=== PATIENT | male | born 1965 | race Caucasian/White ===

== ENCOUNTER 2021-05-13 07:36 | Emergency (ER) | payer OTHER ==
[2021-05-13 07:50] VITALS: BP 168/108
[2021-05-13] MEDS ORDERED: oxyCODONE 5 MG TABLET PO STA (08:59)
--- NOTE | 2021-05-13 09:59 | XRAY Report ---
PROCEDURE: Knee 2 View RT INDICATIONS: Swelling TECHNIQUE: 2 views of the right knee(s) were acquired. COMPARISON: 08/07/2013 FINDINGS: Bones: No acute fractures or dislocations. There is a remote likely avulsion fracture seen involving the inferior aspect of the medial femoral condyle, which is stable compared to 2013. No suspicious b janna lesions. Soft tissues: There is a small joint effusion. No suspicious soft tissue calcifications. Atheroscle rotic calcification is seen. IMPRESSION: Small joint effusion. No acute bony abnormality is seen. If there is strong clinical concern for internal derangement of the knee, please consider a dedicated , scheduled knee MRI for further evaluation (assuming that there is no contraindication). Reviewed by: Jason Jameson MD on 05/13/2021 7:48 AM LANEDN Approved by: Jason Jameson MD on 05/13/2021 7:48 AM LANDEN Station ID: [id number]
[2021-05-13] MEDS ORDERED: TRIAMCINOLONE 40 MG/ML VIAL IM STA (10:32)
--- NOTE | 2021-05-13 11:25 | ED Physician Documentation ---
History of Present Illness - Stated complaint Stated Complaint: RT KNEE SWELLING - Chief complaint Chief Complaint: Ext Problem - History obtained from History obtained from: Patient - Additonal information Additional information: 55-year-old man with past medical history of gout status post steroid treatment for right knee pain, also with history of osteoarthritis and chronic insufficiency fracture presents with right knee pain that is persistent over the past week, progressively worsening, worse with bending the knee and pressing on the kneecap. He denies trauma, erythema, fevers. Does have mild swelling to the knee. Review of Systems Constitutional: denies: Fever, Chills Skin: denies: Rash, Lesions Musculoskeletal: reports: Extremity pain, Joint pain Neurologic: denies: Focal weakness, Numbness PD PAST MEDICAL HISTORY - Past Medical History Endocrine/Autoimmune: Type 2 diabetes, HyPOthyroidism Musculoskeletal: Gout - Past Surgical History Past Surgical History: Yes - Present Medications Home Medications: Ambulatory Orders Medication Instructions Recorded Confirmed Levothyroxine Sodium [Synthroid] 50 mcg PO DAILY 08/07/13 07/21/14 ALPRAZolam [Xanax] 0.5 mg PO DAILY 07/21/14 07/21/14 Atorvastatin Calcium [Lipitor] 20 mg PO DAILY 07/21/14 07/21/14 Metformin HCl [Metformin ER 500 mg PO DAILY 07/21/14 07/21/14 Osmotic] allopurinoL [Allopurinol] 100 mg PO DAILY 07/21/14 07/21/14 Metoclopramide [Reglan] 10 mg PO ACHS #20 tablet 07/22/14 - Allergies Allergies/Adverse Reactions: Allergies Allergy/AdvReac Type Severity Reaction Status Date / Time No Known Drug Allergies Allergy Verified 05/13/21 07:49 - Social History Does the pt smoke?: Yes Smoking Status: Current every day smoker Does the pt drink ETOH?: No Does the pt have substance abuse?: No PD ED PE NORMAL - Vitals Vital signs reviewed: Yes - General General: Alert and oriented X 3, No acute distress, Well developed/nourished - HEENT HEENT: Atraumatic, PERRL, EOMI - Derm Derm: Normal color, Warm and dry - Extremities Extremities: Other (Mild swelling palpable to right knee. Tender with range of motion of the knee. Patella tender to palpation. No cellulitis or erythema or warmth. 2+ dp/pt pulses, sensation, cap refill) - Neuro Neuro: Alert and oriented X 3, No motor deficit, No sensory deficit - Psych Psych: Normal mood, Normal affect Results - Vitals Vitals: Vital Signs - 24 hr 05/13/21 07:47 Temperature 36.9 C Heart Rate 64 Respiratory 16 Rate Blood Pressure 168/108 H O2 Saturation 99 Oxygen O2 Source Room air Procedures - Arthrocentesis Joint: Knee, Right Preparation: Consent obtained, Sterile prep and drape Anesthesia: Lidocaine 1% Fluid: Clear, Sent for cell count, Sent for crystals, Sent for culture, Sent for gram stain Aftercare: Dressing applied, No complications, Other (1 mL of steroid and 1 mL of 1% lidocaine injected into the knee joint for symptomatic care.), Patient tolerated well PD MEDICAL DECISION MAKING - ED course ED course: 55-year-old man presented with right knee effusion. Arthrocentesis performed without issue and sent to the lab. no cellulitis, calor, and the fluid is clear. Patient will follow up with orthopedics and will review his results on that would be patient health portal. Return precautions given. Impression 1 knee effusion Departure - Departure Disposition: 01 Home, Self Care Condition: Good Instructions: ED Effusion Knee Follow-Up: Nelson Duncan MD [Provider Admit Priv/Credential] - Comments: You are seen in the emergency department for knee effusion (buildup of fluid in the knee joint). A sample was taken from the knee and sent for analysis. You should follow-up with orthopedics to review these results And can also review them on the patient health portal accessible through the [employer] Internet. Try not to move your knee for at least 48 hours and use the knee immobilizer. I injected steroid and numbing medication called lidocaine into the knee joint and that should give you some relief. Return the emergency department if you de velop fevers, redness, worsening pain, or have other concerns.
[2021-05-13 11:51] LABS: BF CLARITY CLEAR
[2021-05-13 11:52] LABS: BF COLOR COLORLESS; BF SOURCE KNEE
[2021-05-13 11:57] LABS: CC,BF WBC 67 /mm^3
[2021-05-13 11:58] LABS: CC,BF RBC < 3000 /mm^3
[2021-05-13 13:32] LABS: NEUTROPHILS %, BF 48 %
[2021-05-13 13:33] LABS: LYMPHOCYTES %,BODY FLUID 40 %; MESOTHELIAL %, BF 12 %
== END 2021-05-13 11:40 | disposition home or self-care (01) ==
LOC: ED 07:36
DX: M25.461 Effusion, right knee (principal); F17.200 Nicotine dependence, unspecified, uncomplicated
CPT/HCPCS: 20610; 73560; 87070; 87205; 89051; 89060; 96372; 99284; A9270

== ENCOUNTER 2023-04-03 14:36 | Emergency (ER) | payer OTHER ==
[2023-04-03] MEDS ORDERED: ONDANSETRON 4 MG/2 ML VIAL IVP STA (14:55)
[2023-04-03] MEDS ORDERED: SODIUM CHLORIDE 0.9% 1,000 ML IV STA (14:55)
[2023-04-03] MEDS ORDERED: iohexoL-300 100 ML VIAL ONE (15:03)
--- NOTE | 2023-04-03 15:03 | ED Physician Documentation ---
History of Present Illness - Stated complaint Stated Complaint: OVERLY TIRED/SENT BY PCP - Chief complaint Chief Complaint: General - History obtained from History obtained from: Patient - Additonal information Additional information: 57-year-old male with a history of type 2 diabetes, recently started on Ozempic a couple of months ago, presents at the request of his PCP clinic for nausea, vomiting, diarrhea, as well as a reported elevated white blood cell count. The patient had routine labs done today in preparation for an appointment next week on Thursday and he was apparently told to come emergently to the ER for an elevated white blood cell count. Patient states he is only here because he was told to be here but does note that over the last month or so he has had issues with bloating, nausea, vomiting and diarrhea since he started the Ozempic. He looked at the potential side effects and since these were listed he thought it was likely related to the medication and did not seek care for this and states that it typically would go away for couple of days after he would receive his injection though this past week it lasted nearly a week since his last injection and he Chose not to take it any longer due to ongoing side effects. He does feel somewhat better today than he has been feeling, he was able to go out to breakfast this morning and then also ate lunch today and has kept that down without vomiting. He is down about 17 to 20 pounds over the course of the last 2 months since he started Ozempic. He states when the pain comes is typically like severe gas pain, radiating throughout the abdomen but most prominently in the mid and left upper quadrants. It feels as though he needs to burp or pass gas but he cannot. He states he does have this frequently even prior to the Ozempic as he is on BiPAP and he often feels bloated in the morning but that would improve throughout the day though recently it has been more persistent. He has tried Gas-X without relief. He has associated fatigue but he denies any fever, no cough or URI symptoms, no chest pain or difficulty breathing, no dysuria urgency or frequency. No antibiotic use in the last 3 months, no hospitalizations or international travel. No atypical foods or water sources. Review of lab work from the [facility] reveals a white blood cell count of 21.6, hemoglobin of 16.4, hematocrit of 47.6, glucose of 124, BUN of 19, creatinine of 1.16, sodium 136, normal potassium and calcium, AST of 54, bilirubin of 0.5, ALT of 44, A1c of 7.5, TSH of 5.8, free T4 of 0.7 Review of Systems Constitutional: reports: Fatigue, Weight Loss. denies: Fever, Chills, Myalgias, Sweats Eyes: reports: Reviewed and negative Ears: reports: Reviewed and negative Nose: reports: Reviewed and negative Throat: reports: Reviewed and negative Cardiac: reports: Reviewed and negative Respiratory: reports: Reviewed and negative GI: reports: Abdominal Pain, Abdominal Swelling, Nausea, Vomiting, Diarrhea. denies: Constipation, Hematemesis, Bloody / black stool : reports: Reviewed and negative Skin: reports: Reviewed and negative Musculoskeletal: reports: Reviewed and negative Neurologic: reports: Reviewed and negative Endocrine: reports: Weight loss (intentional, on ozempic) PD PAST MEDICAL HISTORY - Past Medical History Past Medical History: Yes Endocrine/Autoimmune: Type 2 diabetes, HyPOthyroidism Musculoskeletal: Gout - Past Surgical History Past Surgical History: Yes - Present Medications Home Medications: Ambulatory Orders Medication Instructions Recorded Confirmed Levothyroxine Sodium [Synthroid] 50 mcg PO DAILY 08/07/13 07/21/14 ALPRAZolam [Xanax] 0.5 mg PO DAILY 07/21/14 07/21/14 Atorvastatin Calcium [Lipitor] 20 mg PO DAILY 07/21/14 07/21/14 Metformin HCl [Metformin ER 500 mg PO DAILY 07/21/14 07/21/14 Osmotic] allopurinoL [Allopurinol] 100 mg PO DAILY 07/21/14 07/21/14 Metoclopramide [Reglan] 10 mg PO ACHS #20 tablet 07/22/14 Ondansetron Odt [Zofran] 4 mg TL Q6H PRN #10 tablet 04/03/23 - Allergies Allergies/Adverse Reactions: Allergies Allergy/AdvReac Type Severity Reaction Status Date / Time No Known Drug Allergies Allergy Verified 04/03/23 14:42 - Social History Does the pt smoke?: Yes Smoking Status: Current every day smoker Does the pt drink ETOH?: No Does the pt have substance abuse?: No PD ED PE NORMAL - Vitals Vital signs reviewed: Yes - General General: Alert and oriented X 3, No acute distress, Well developed/nourished - HEENT HEENT: Atraumatic, Pharynx benign - Neck Neck: Supple, no meningeal sign, No JVD - Cardiac Cardiac: RRR, No murmur - Respiratory Respiratory: No respiratory distress, Clear bilaterally - Abdomen Abdomen: Normal bowel sounds, Soft, Non tender, Non distended, No organomegaly, Other (No reproducible tenderness on physical exam at present) - Back Back: No CVA TTP, No spinal TTP - Derm Derm: Normal color, Warm and dry, No rash - Extremities Extremities: No deformity, No tenderness to palpate, Normal ROM s pain, No edema, No calf tenderness / cord - Neuro Neuro: Alert and oriented X 3 Eye Opening: Spontaneous Motor: Obeys Commands Verbal: Oriented GCS Score: 15 - Psych Psych: Normal mood, Normal affect Results - Vitals Vitals: Vital Signs - 24 hr 04/03/23 14:39 Temperature 36.7 C Heart Rate 77 Respiratory 20 Rate Blood Pressure 135/103 H O2 Saturation 99 Oxygen O2 Source Room air - Labs Labs: Laboratory Tests 04/03/23 04/03/23 04/03/23 15:02 15:02 15:56 WBC 25.6 H RBC 5.30 Hgb 16.1 Hct 45.4 MCV 85.7 MCH 30.4 MCHC 35.5 RDW 13.0 Plt Count 273 MPV 11.0 Sodium 138 Potassium 3.5 Chloride 105 Carbon Dioxide 21 Anion Gap 12.0 BUN 20 Creatinine 1.1 Estimated GFR (MDRD) 69 L Glucose 122 H Calcium 9.4 Total Bilirubin 0.6 AST 52 H ALT 45 Alkaline Phosphatase 102 Total Protein 8.2 Albumin 4.1 Globulin 4.1 Albumin/Globulin Ratio 1.0 Lipase 41 Urine Color YELLOW Urine Clarity HAZY Urine pH 5.5 Ur Specific Ash 1.025 Urine Protein NEGATIVE Urine Glucose (UA) NEGATIVE Urine Ketones NEGATIVE Urine Occult Blood NEGATIVE Urine Nitrite NEGATIVE Urine Bilirubin NEGATIVE Urine Urobilinogen 0.2 (NORMAL) Ur Leukocyte Esterase NEGATIVE Urine RBC None Seen Urine WBC 0-3 Ur Squamous Epith Cells RARE Squamous Urine Crystals >50 Uric Acid Urine Bacteria Rare Ur Microscopic Review INDICATED Urine Culture Comments NOT INDICATED - Rads (name of study) No standard instances Relevant Findings:: Final report received PD Medical Decision Making - ED course Complexity details: reviewed old records, reviewed results, re-evaluated patient, considered differential, d/w patient ED course: 57-year-old male Presented at the request of his PCP after routine labs revealed a white blood cell count greater than 20,000. The patient had been having some nausea vomiting diarrhea the course of the last couple of weeks as per HPI. On arrival here, patient is well-appearing, nontoxic, afebrile. His physical exam is reassuring with no reproducible abdominal pain and no other acute findings. We obtained labs which show a white blood cell count of 25.6 are otherwise stable, his urinalysis is negative. I did obtain a CT of his abdomen given his GI symptoms and elevated white blood cell count over this is reassuring, showing only mild gastroenteritis likely a result of the side effects of Ozempic. Is a patient is very well-appearing with no other acute findings on exam, I do not see indication for antibiotics at this time. Review of his chart does show that he tends to have a Leukocytosis and patient states that to his knowledge he often has this. He has a follow-up appointment with his primary doctor on Thursday which time they can trend the CBC. He is advised to adhere to a bland diet, stay well-hydrated and have given him a short course of Zofran to use as needed. He was advised that if he developed a fever, increasing abdominal pain or other worsening symptoms before then, to return to the ER for reevaluation. Departure - Departure Disposition: 01 Home, Self Care Clinical Impression: Gastroenteritis Leukocytosis, unspecified Qualifiers: Leukocytosis type: unspecified Qualified Code(s): D72.829 - Elevated white blood cell count, unspecified Condition: Good Instructions: ED Gastroenteritis Non Infec Prescriptions: Ondansetron Odt [Zofran] 4 mg TL Q6H PRN #10 tablet PRN Reason: Nausea / Vomiting Comments: Your work-up today was reassuring. You do have elevated white blood cell count but that seems to be chronic for you, this can be the result of your nausea and vomiting recently as well. Your CT scan did not show any emergent findings. Please continue to hold the Ozempic and I have given you a short course of nausea medicine. Follow-up with your primary doctor on Thursday as scheduled and I recommend repeat blood count to monitor your white blood cells. If you develop fever, abdominal pain or worsening symptoms over the weekend, please return to the ER. Adhere to a bland diet and try to stay well hydrated until symptoms improve.
[2023-04-03 15:08] LABS: BASOPHILS % (AUTO) 0.4 %; EOSINOPHILS % (AUTO) 33.5 %; HCT - HEMATOCRIT 45.4 % (42.0-52.0); HGB - HEMOGLOBIN 16.1 g/dL (14.0-18.0); LYMPHOCYTES % (AUTO) 17.9 %; MEAN CORPUSCULAR HEMOGLOBIN 30.4 pg (27.0-31.0); MEAN CORPUSCULAR HGB CONC 35.5 g/dL (32.0-36.0); MEAN CORPUSCULAR VOLUME 85.7 fL (80.0-94.0); MONOCYTES % (AUTO) 5.3 %; NEUTROPHILS % (AUTO) 42.4 %; PLT - PLATELET COUNT 273 10^3/uL (130-450); WHITE BLOOD COUNT 25.6 x10^3/uL (4.8-10.8)
[2023-04-03 15:10] LABS: ABNORMAL LYMPHS % (MANUAL) 0 %; BAND NEUTROPHILS % (MANUAL) 0 %
[2023-04-03 15:23] LABS: ALBUMIN 4.1 g/dL (3.2-5.5); BILIRUBIN,TOTAL 0.6 mg/dL (0.2-1.0); CALCIUM 9.4 mg/dL (8.5-10.3); CREATININE 1.1 mg/dL (0.6-1.2); POTASSIUM 3.5 mmol/L (3.5-5.0); TOTAL PROTEIN 8.2 g/dL (6.7-8.2)
[2023-04-03] MEDS ORDERED: iohexoL-300 100 ML VIAL IVP ONE (15:48)
[2023-04-03 16:03] LABS: BILIRUBIN,URINE NEGATIVE (NEGATIVE); GLUCOSE, URINE (UA) NEGATIVE (NEGATIVE); KETONES,URINE (UA) NEGATIVE (NEGATIVE); LEUKOCYTE ESTERASE, URINE NEGATIVE (NEGATIVE); NITRITE,URINE NEGATIVE (NEGATIVE); OCCULT BLOOD,URINE NEGATIVE (NEGATIVE); PH,URINE 5.5 PH (5.0-7.5); PROTEIN,URINE NEGATIVE (NEGATIVE); UROBILINOGEN,URINE 0.2 (NORMAL) E.U./dL (NORMAL)
[2023-04-03 16:04] LABS: CLARITY,URINE HAZY (CLEAR)
--- NOTE | 2023-04-03 16:15 | CT Report ---
PROCEDURE: ABDOMEN/PELVIS W INDICATIONS: suspected colitis, abd pain n/v/d CONTRAST: 100ml omni 300 TECHNIQUE: After the administration of intravenous contrast, 5 mm thick sections acquired from the diaphragms to the symphysis. 5 mm thick coronal and sagittal reformats were acquired. For radiation dose reducti on, the following was used: automated exposure control, adjustment of mA and/or kV according to arsh ent size. COMPARISON: None FINDINGS: Image quality: Excellent. Lung bases and heart: Unremarkable. Liver: Mild diffuse hepatic steatosis. No solid mass. Gallbladder and biliary tree: No radiopaque stones or wall thickening. No biliary dilation. Spleen: No splenomegaly. Pancreas: No pancreatic ductal dilation. Adrenals: 1.7 cm probable left adrenal adenoma. Kidneys and ureters: No hydronephrosis. No renal cystic lesion which requires follow up. No solid mas s. Bowel and peritoneum: No bowel distension. No pathologic free fluid. Mildly prominent small bowel sindhu led with fluid and wall enhancement of multiple loops, not abnormally dilated, suggesting possible ga stroenteritis. No colonic thickening or dilatation. Lymph nodes: No central or retroperitoneal adenopathy. Vessels: No infrarenal aortic aneurysm. PELVIS Reproductive organs: Unremarkable. Bladder: No abnormal wall thickening, accounting for underdistension. Prostate is enlarged. Pelvic lymph nodes: No pelvic adenopathy by size criteria. Bones: No aggressive osseous abnormality. Other: No significant ventral or inguinal hernia. IMPRESSION: 1. Question gastroenteritis. No evidence of colitis. 2. Mild diffuse hepatic steatosis. 3. Probable small left adrenal adenoma. Reviewed by: Fermin Dias MD on 04/03/2023 4:14 PM PDT Approved by: Fermin Dias MD on 04/03/2023 4:14 PM PDT Station ID: [id number]
[2023-04-03 16:27] LABS: BACTERIA,URINE Rare /HPF (None Seen); CRYSTALS,URINE >50 Uric Acid /LPF; RBC,URINE None Seen /HPF (0-5); SQUAMOUS EPITHELIAL CELL,UR RARE Squamous (<= Few); WBC,URINE 0-3 /HPF (0-3)
[2023-04-03 16:38] LABS: BASOPHILS # (MANUAL) 0.3 10^3/uL (0-0.1); BASOPHILS % (MANUAL) 1 %; DIFFERENTIAL COMMENT MANUAL DIFFERENTIAL; EOSINOPHILS # (MANUAL) 10.2 10^3/uL (0-0.7); LYMPHOCYTES # (MANUAL) 5.9 10^3/uL (1.5-3.5); LYMPHOCYTES % (MANUAL) 10 %; MONOCYTES # (MANUAL) 0.8 10^3/uL (0.0-1.0); NEUTROPHILS # (MANUAL) 8.4 10^3/uL (1.5-6.6); PLATELET ESTIMATE, MANUAL NORMAL (130-450,000) (NORMAL); PLATELET MORPHOLOGY NORMAL APPEARANCE (NORMAL); RBC MORPHOLOGY (MULTIPLE) NORMAL APPEARANCE (NORMAL); REACTIVE LYMPHS % (MANUAL) 13 %; WBC MORPHOLOGY (MULTIPLE) NORMAL APPEARANCE (NORMAL)
[2023-04-03 17:08] VITALS: BP 114/69
== END 2023-04-03 16:40 | disposition home or self-care (01) ==
LOC: ED 14:36
DX: K52.9 Noninfective gastroenteritis and colitis, unspecified (principal); D72.829 Elevated white blood cell count, unspecified; T50.996A Underdosing of other drugs, medicaments and biological substances, initial encounter; E11.9 Type 2 diabetes mellitus without complications; Z79.85 Long-term (current) use of injectable non-insulin antidiabetic drugs; F17.200 Nicotine dependence, unspecified, uncomplicated
CPT/HCPCS: 36415; 74177; 80053; 81001; 83690; 85025; 96374; 99284; Q9967; 81003; 87086

== ENCOUNTER 2023-04-04 21:18 | Emergency (ER) | payer OTHER ==
--- NOTE | 2023-04-04 21:31 | ED Physician Documentation ---
History of Present Illness - Stated complaint Stated Complaint: GAS/CHEST/BACK PX - Chief complaint Chief Complaint: Abd Pain - History obtained from History obtained from: Patient - Additonal information Additional information: HPI from patient. Patient complains of general abdominal discomfort which she describes as feeling bloated, "like gas is trapped" (per patient). The pain radiates to his lower anterior chest at times. There are no exacerbating or ameliorating factors. He was evaluated for the symptoms in this emergency department yesterday, at which time a thorough work-up that included blood tests and a CT scan of the abdomen pelvis had no diagnostic findings; leukocytosis was noted with a white blood cell count of 25.6, and the CT scan did evidence some mild but diffuse edema of the wall of the small intestine. Within the differential diagnosis was possible side effect of the Ozempic medication he was receiving on a weekly basis. Patient says he will no longer be taking this medication due to the suspicion that this could be causing, or at least contributing, to the signs and symptoms. Patient returns due to a persistence of the symptoms rather than any worsening or new symptoms. Review of Systems Constitutional: denies: Fever, Chills, Sweats Cardiac: reports: Reviewed and negative Respiratory: reports: Reviewed and negative GI: reports: Abdominal Pain, Abdominal Swelling. denies: Nausea, Vomiting, Hematemesis, Bloody / black stool PD PAST MEDICAL HISTORY - Past Medical History Past Medical History: Yes Endocrine/Autoimmune: Type 2 diabetes, HyPOthyroidism Musculoskeletal: Gout - Past Surgical History Past Surgical History: Yes - Present Medications Home Medications: Ambulatory Orders Medication Instructions Recorded Confirmed Levothyroxine Sodium [Synthroid] 50 mcg PO DAILY 08/07/13 07/21/14 ALPRAZolam [Xanax] 0.5 mg PO DAILY 07/21/14 07/21/14 Atorvastatin Calcium [Lipitor] 20 mg PO DAILY 07/21/14 07/21/14 Metformin HCl [Metformin ER 500 mg PO DAILY 07/21/14 07/21/14 Osmotic] allopurinoL [Allopurinol] 100 mg PO DAILY 07/21/14 07/21/14 Metoclopramide [Reglan] 10 mg PO ACHS #20 tablet 07/22/14 Ondansetron Odt [Zofran] 4 mg TL Q6H PRN #10 tablet 04/03/23 - Allergies Allergies/Adverse Reactions: Allergies Allergy/AdvReac Type Severity Reaction Status Date / Time No Known Drug Allergies Allergy Verified 04/03/23 14:42 - Social History Does the pt smoke?: Yes Smoking Status: Current every day smoker Does the pt drink ETOH?: No Does the pt have substance abuse?: No PD ED PE NORMAL - Vitals Vital signs reviewed: Yes - General General: Alert and oriented X 3, No acute distress, Well developed/nourished - HEENT HEENT: Moist mucous membranes - Cardiac Cardiac: RRR, No murmur - Respiratory Respiratory: No respiratory distress, Clear bilaterally - Abdomen Abdomen: Normal bowel sounds, Soft, Non tender, Non distended - Derm Derm: Normal color, Warm and dry Results - Vitals Vitals: Oxygen O2 Source Room air - EKG (time done) No standard instances EKG releavant findings:: EKG personally interpreted by author of this note. Relevant findings are: Rate: Rate (enter#) (55) Rhythm: NSR Peterson: Normal Intervals: Normal DE QRS: Normal Ischemia: Non specific changes (V3-V6, I, aVL, II, III, aVF (nonspecific ST changes)) - Labs Labs: Laboratory Tests 04/04/23 04/04/23 04/04/23 22:36 22:36 22:36 WBC 25.3 H RBC 4.74 Hgb 14.5 Hct 41.5 L MCV 87.6 MCH 30.6 MCHC 34.9 RDW 13.2 Plt Count 231 MPV 11.1 Neut # (Auto) Not Reportable Lymph # (Auto) Not Reportable Boyd # (Auto) Not Reportable Eos # (Auto) Not Reportable Baso # (Auto) Not Reportable Absolute Nucleated RBC Not Reportable Total Counted 100 Band Neuts % (Manual) 0 Abnorm Lymph % (Manual) 0 Nucleated RBC % Not Reportable Neutrophils # (Manual) 10.6 H Lymphocytes # (Manual) 3.0 Monocytes # (Manual) 0.3 Eosinophils # (Manual) 11.4 H Basophils # (Manual) 0.0 Differential Comment MANUAL DIFFERENTIAL Platelet Estimate NORMAL (130-450,000) Platelet Morphology NORMAL APPEARANCE RBC Morph Micro Appear n Sodium 139 Potassium 3.7 Chloride 108 Carbon Dioxide 23 Anion Gap 8.0 BUN 15 Creatinine 0.8 Estimated GFR (MDRD) 100 Glucose 145 H Calcium 9.2 Total Bilirubin 0.5 AST 41 ALT 35 Alkaline Phosphatase 82 Troponin I High Sens 12.0 Total Protein 7.3 Albumin 3.6 Globulin 3.7 Albumin/Globulin Ratio 1.0 Lipase 41 PD Medical Decision Making - ED course Complexity details: reviewed old records (Reviewed the ED chart and test results from yesterday's ED visit.), reviewed results, re-evaluated patient, considered differential, d/w patient ED course: Tests ordered and reviewed by me: CBC, ear abdominal panel, troponin, EKG, chest x-ray. Leukocytosis is again noted with white blood cell count 25.3 (was 25.6 yesterday). Normal high-sensitivity troponin, and normal ear abdominal panel except for blood sugar 145. Chest x-ray is unremarkable. Patient is in NAD on my initial evaluation as well as reevaluation after the tests were resulted. We discussed the test results. He does not require any symptomatic treatment during ED stay. Patient is reassured by the test results natty. I explained to him that I would not expect the white blood cell count to have had significant change compared to yesterday, and it is at least somewhat reassuring that his white blood cell count has not progressed and that the rest of his blood tests are unremarkable. I instructed the patient to follow-up with his primary care provider next available appointment. Return precautions were very carefully discussed. Departure - Departure Disposition: 01 Home, Self Care Clinical Impression: Gastroenteritis, Leukocytosis, unspecified Condition: Good Instructions: ED Abdominal Pain Unkn Cause Male Follow-Up: Pat Salguero MD [Primary Care Provider] - Comments: There were no concerning or diagnostic findings on natty's tests. The exception was, of course, the persistently elevated white blood cell count. It is reassuring, to some degree, that the white blood cell count is about the same as it was yesterday; that it is not continuing to go up is a good sign. As we discussed, I suspect your elevated white blood cell count is due to the inflammation of the small intestines that was seen on the CT scan of your abdomen and pelvis that was performed yesterday. It is not clear what is causing that finding on the CT, but there is no indication at this time if there is any serious cause. Potential causes would include some common viruses, and the medication were taking (Ozempic) might have played a role. Follow-up with your primary care provider on Thursday as scheduled. Of course, you can always return to the emergency department at any time if you feel your symptoms are worsening or if you develop new/concerning signs/symptoms (such as fever or blood in stool) Discharge Date/Time: 04/05/23 00:31
--- NOTE | 2023-04-04 22:20 | XRAY Report ---
PROCEDURE: Chest 2 View X-Ray INDICATIONS: chest pain TECHNIQUE: 2 views of the chest were acquired. COMPARISON: CXR 07/21/2014. FINDINGS: Surgical changes and devices: None. Lungs and pleura: No pleural effusions or pneumothorax. Lungs are clear. Mediastinum: Mediastinal contours appear normal. Heart size is normal. Bones and chest wall: No suspicious bony lesions. Overlying soft tissues appear unremarkable. IMPRESSION: No acute cardiopulmonary process. Reviewed by: Osvaldo Quinones MD on 04/04/2023 10:19 PM PDT Approved by: Osvaldo Quinones MD on 04/04/2023 10:19 PM PDT Station ID: [id number]
[2023-04-04 22:43] LABS: BASOPHILS % (AUTO) 0.6 %; EOSINOPHILS % (AUTO) 47.2 %; HCT - HEMATOCRIT 41.5 % (42.0-52.0); HGB - HEMOGLOBIN 14.5 g/dL (14.0-18.0); LYMPHOCYTES % (AUTO) 14.9 %; MEAN CORPUSCULAR HEMOGLOBIN 30.6 pg (27.0-31.0); MEAN CORPUSCULAR HGB CONC 34.9 g/dL (32.0-36.0); MEAN CORPUSCULAR VOLUME 87.6 fL (80.0-94.0); MEAN PLATELET VOLUME 11.1 fL (7.4-11.4); MONOCYTES % (AUTO) 4.2 %; NEUTROPHILS % (AUTO) 32.7 %; PLT - PLATELET COUNT 231 10^3/uL (130-450); RED BLOOD COUNT 4.74 10^6/uL (4.70-6.10); RED CELL DISTRIBUTION WIDTH 13.2 % (12.0-15.0); WHITE BLOOD COUNT 25.3 x10^3/uL (4.8-10.8)
[2023-04-04 22:46] LABS: ABNORMAL LYMPHS % (MANUAL) 0 %; BAND NEUTROPHILS % (MANUAL) 0 %
[2023-04-04 22:58] LABS: ALBUMIN 3.6 g/dL (3.2-5.5); BILIRUBIN,TOTAL 0.5 mg/dL (0.2-1.0); CALCIUM 9.2 mg/dL (8.5-10.3); CREATININE 0.8 mg/dL (0.6-1.2); POTASSIUM 3.7 mmol/L (3.5-5.0); TOTAL PROTEIN 7.3 g/dL (6.7-8.2)
[2023-04-04 23:03] LABS: DIFFERENTIAL COMMENT MANUAL DIFFERENTIAL; EOSINOPHILS # (MANUAL) 11.4 10^3/uL (0-0.7); LYMPHOCYTES % (MANUAL) 12 %; MONOCYTES # (MANUAL) 0.3 10^3/uL (0.0-1.0); NEUTROPHILS # (MANUAL) 10.6 10^3/uL (1.5-6.6); PLATELET ESTIMATE, MANUAL NORMAL (130-450,000) (NORMAL); PLATELET MORPHOLOGY NORMAL APPEARANCE (NORMAL); RBC MORPHOLOGY (MULTIPLE) n (NORMAL)
[2023-04-05 00:26] VITALS: BP 155/90
== END 2023-04-05 00:31 | disposition home or self-care (01) ==
LOC: ED 21:18
DX: K52.9 Noninfective gastroenteritis and colitis, unspecified (principal); D72.829 Elevated white blood cell count, unspecified; E11.9 Type 2 diabetes mellitus without complications; F17.200 Nicotine dependence, unspecified, uncomplicated
CPT/HCPCS: 36415; 80053; 83690; 84484; 85025; 93005; 99283; 99284